=== PATIENT | male | born 1980 | race Caucasian/White ===

== ENCOUNTER 2020-01-05 08:55 | Emergency (ER) | payer OTHER, MEDICAID, SELFPAY ==
--- NOTE | 2020-01-05 09:17 | ED.ASTHMA ---
HPI - Asthma General Chief Complaint: Asthma Stated Complaint: SOB Time Seen by Provider: 01/05/20 09:17 Source: patient Mode of arrival: ambulatory Limitations: no limitations History of Present Illness MD complaint: other (needs inhaler) Onset (ago): day(s) Severity: mild Context: ran out of meds Associated symptoms: none Asthma History: childhood onset Related Data Allergies Allergy/AdvReac Type Severity Reaction Status Date / Time No Known Allergies Allergy Verified 01/05/20 08:59 [No Known Allergies*] Review of Systems Review of Systems: Constitutional : no fevers no chills ENT/Mouth : no sore throat, no runny nose Eyes: No Discharge Cardiovascular : No Chest Pain, No SOB Respiratory : No Cough, No Sputum Gastrointestinal : No Nausea, No Vomiting, No Diarrhea Genitourinary : No Dysuria, No Urinary Frequency Musculoskeletal : no Myalgia Skin : No rash Neuro : No Headache PMFSH Past Medical History Medical History Asthma Social History Social History Smoking Status: Current every day smoker Use of substances other than those prescribed or required for medical reasons: Yes Substance Use Type: Marijuana Substance Use Frequency: Daily Last Used Substance: Unknown Any prior treatment program specific to substance use: No Physical Exam Vital Signs and I&O and Narrative: Vital Signs and I&O: Vital Signs Temp 97.9 F 01/05/20 09:20 Pulse 88 01/05/20 09:20 Resp 16 01/05/20 09:20 BP 125/75 01/05/20 09:20 Pulse Ox 94 01/05/20 09:20 Intake & Output 01/04/20 01/05/20 01/05/20 18:59 06:59 18:59 Weight 87.3 kg Body Mass Index 26.1 Appearance: Alert. Oriented X3. No acute distress. Eyes: Pupils equal, round and reactive to light. ENT: Pharynx normal. Neck: Normal inspection. Neck supple. CVS: Normal heart rate and rhythm. Pulses normal. Respiratory: No respiratory distress. Breath sounds normal. Abdomen: Soft and nontender. Skin: Skin warm and dry. Normal skin color. Normal skin turgor. Extremities: No lower extremity edema. No lower extremity edema. Neuro: Oriented X 3. No motor deficit. No sensory deficit. MDM - Asthma MDM Narrative Medical decision making narrative: clear lungs no hypoxia here for inhaler only - no complaints, lost his, not toxic, clear lungs Discharge Plan Discharge Clinical Impression: Asthma Qualifiers: Asthma severity: mild Asthma persistence: unspecified Asthma complication type: with acute exacerbation Qualified Code(s): J45.901 - Unspecified asthma with (acute) exacerbation Patient Disposition: Home, Self-Care Instructions: Asthma (ED) Stand Alone Forms: Work/School Release
[2020-01-05 09:20] VITALS: BP 125/75; PULSE 88; RESP 16; TEMP 36.6; O2SAT 94; BMI 26.1
[2020-01-05 09:56] VITALS: BP 102/75; PULSE 69; RESP 14; TEMP 36.6; O2SAT 94
== END 2020-01-05 10:15 | disposition home or self-care (01) ==
LOC: HO.ED 09:44
PROVIDERS: Emergency Provider Emergency Medicine; PCP Internal Medicine
DX: J45.31 Mild persistent asthma with (acute) exacerbation (principal)
CPT/HCPCS: 99284

== ENCOUNTER → 2020-05-10 15:29 | Outpatient (BNVA) | payer OTHER, MEDICAID, SELFPAY | PROVIDERS: PCP Internal Medicine; Visit Provider Internal Medicine Pulmonary Disease ==

== ENCOUNTER → 2020-06-01 16:14 | Outpatient (BNVA) | payer OTHER, MEDICAID, SELFPAY | PROVIDERS: PCP Internal Medicine; Visit Provider Internal Medicine Pulmonary Disease ==

== ENCOUNTER 2022-11-23 06:11 | Inpatient (IN) | payer MEDICAID, SELFPAY ==
[2022-11-23] VITALS (12 sets, daily range): BP systolic 99–141; BP diastolic 54–81; PULSE 53–101; RESP 14–22; TEMP 36.3–37; O2SAT 73–100; BMI 20.9
--- NOTE | ~2022-11-23 | XR_ITS ---
EXAMINATION: XR chest 1V CLINICAL INFORMATION: Reason for Exam hypoxia COMPARISON: Prior study 04/16/2019 TECHNIQUE: XR chest 1V Tubes and lines: None Lungs and pleura: The entire Left lung field attenuation is mildly higher than the right, this can be seen in patients with mild uniform interstitial pneumonitis on the left, or decreased diffusion of the right lung due to PE or artifactual positional. No focal consolidation. Heart and mediastinum: The mediastinum is within normal limits.. Bones/soft tissue: Skeletal structures included are normal for patient's age. XR/XR chest 1V IMPRESSION: - Mild diffuse increased attenuation of the left lung field could be mild uniform interstitial pneumonitis, versus decreased diffusion of the right lung due to underlying hypoperfusion due to PE or artifactual positional. Please correlate with patient's symptoms, consider correlation with follow-up chest PA and lateral and if persisted consider CT scan. - No focal consolidation, no pleural effusion.
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
--- NOTE | 2022-11-23 06:55 | PC.NURSE ---
Administered nasal narcan to pt per WAREHOUSE [employer]OR present at bedside for depresed respiratory effort and low O2 saturation.
[2022-11-23 06:58] LABS: MANUAL DIFF FLAG NO
--- NOTE | 2022-11-23 06:58 | ECG_ITS ---
Test Reason : OVERDOSE Blood Pressure : / mmHG Vent. Rate : 089 BPM Atrial Rate : 089 BPM P-R Int : 150 ms QRS Dur : 092 ms QT Int : 404 ms P-R-T Axes : 075 060 070 degrees QTc Int : 491 ms Normal sinus rhythm Prolonged QT Abnormal ECG No previous ECGs available Referred By: Claudia Mayers Electronically Signed By:ADELITA HUNTER
[2022-11-23 07:02] LABS: Basophils Absolute Auto 0.1 X10*3/uL (0.0-0.2); Basophils Percent Auto 0.7 % (0-2); Eosinophils Absolute Auto 0.1 X10*3/uL (0.0-0.4); Eosinophils Percent Auto 0.7 % (0-4); Hematocrit 38.8 % (42.0-52.0); Hemoglobin 12.6 g/dl (14.0-18.0); Imm Gran Abs Auto 0.02 X10*3/uL (0.00-0.03); Imm Gran Pct Auto 0.3 % (0.0-0.4); Lymphocytes Absolute Auto 1.9 X10*3/uL (1.2-4.9); Lymphocytes Percent Auto 25.6 % (20-40); Mean Corpuscular HGB Conc 32.5 g/dl (31.0-36.0); Mean Corpuscular Hemoglobin 26.8 pg (27.0-33.0); Mean Corpuscular Volume 82.6 fL (80.0-98.0); Mean Platelet Volume 9.4 fL (9.4-12.4); Monocytes Absolute Auto 0.8 X10*3/uL (0.1-1.2); Monocytes Percent Auto 11.1 % (2-11); Neutrophils Absolute Auto 4.6 x10*3/uL (2.0-8.3); Neutrophils Percent Auto 61.6 % (45-73); Platelet Count 283 X10*3/uL (160-400); White Blood Count 7.4 X10*3/uL (4.8-10.8)
[2022-11-23 07:03] LABS: VBG Base Excess 5.2 mmol/L; VBG HCO3 26 mmol/L (22-26); VBG pCO2 30 mmHg; VBG pH 7.55 (7.32-7.43); VBG pO2 44 mmHg
[2022-11-23 07:13] LABS: Venous Blood Gas Refer to POC result
[2022-11-23] MEDS: 0.9 % Sodium Chloride 1,000 ML 999 ML IV (07:55)
[2022-11-23] MEDS: ondansetron HCL 4 MG/2 ML VIAL IVPUSH (07:56)
--- NOTE | 2022-11-23 08:00 | PC.NURSE ---
narcan administered by previous shift RN. pt arrived agitated, diaphoretic, incontinent of stool/urine; admits to using heroin/cocaine/crack + 4x24oz beers/day. pt states last drink around 0200 today. iv established; ivf infused. respirations even and unlabored; sats remain 98% on RA. skin wpd. pt reported to appear more drowsy; awake to tactile stimuli however vital signs remain stable.
--- NOTE | 2022-11-23 08:23 | PC.NURSE ---
held po med per PA as pt unable to intake po.
[2022-11-23] MEDS: Naloxone HCl Nasal 4 MG SPRAY NOSTRILALT (08:31)
[2022-11-23 09:08] LABS: Alanine Aminotransferase 16 U/L (0-40); Albumin Level 3.6 g/dL (3.5-5.0); Alkaline Phosphatase 80 U/L (39-117); Anion Gap 17 (12-20); Aspartate Amino Transferase 26 U/L (5-37); Bilirubin Direct 0.3 mg/dL (0.0-0.5); Bilirubin Total 0.5 mg/dL (0.0-1.0); Blood Urea Nitrogen 13 mg/dL (9-16); Calcium 9.3 mg/dL (8.4-10.2); Carbon Dioxide 20 mmol/L (22-29); Chloride 106 mmol/L (96-108); Creatinine Clr Calc Pharmacy 111.7; Estimated Glomerular Filt Rate > 60; Ethanol < 10 mg/dL; Glucose Random 87 mg/dL (60-115); Magnesium 1.9 mg/dL (1.6-2.6); Potassium 3.5 mmol/L (3.3-5.1); Sodium 139 mmol/L (135-145); Total Protein 7.5 g/dL (6.5-8.0)
--- NOTE | 2022-11-23 11:19 | PC.NURSE ---
pt alert to voice; vital signs remain stable; on RA sats 96%.
--- NOTE | 2022-11-23 12:08 | PC.NURSE ---
pt arousable to tactile stimulation, vss, reports increased nausea, COWS = 9, CIWA = 9, provider aware.
[2022-11-23] MEDS: PHENobarbitaL sodium 130 MG/ML IM ONCE 217.6 MG IM (13:03)
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
--- NOTE | 2022-11-23 13:43 | PHA.MEDREC ---
Pharmacy Consult ? Medication Reconciliation Pharmacy has completed the medication reconciliation.
--- NOTE | 2022-11-23 15:04 | PC.NURSE ---
pt remains drowsy, rousable to tactile stimulation, vss, PO meds held due to pt somnolence. CIWA - 0, pt pending bed assignment.
[2022-11-23] MEDS: Lactated Ringers 1,000 ML 100 ML IVCONT (15:25)
[2022-11-23] MEDS: Enoxaparin Sodium 40 MG/0.4 ML SYRINGE SUBCUT (16:00)
[2022-11-23] MEDS: PHENobarbitaL sodium 130 MG/ML VIAL IM Q3Hx2 163.2 MG IM ×2 (16:01→19:50)
--- NOTE | 2022-11-23 16:07 | MHC.RECOVRN ---
This assembly instructions writer met with patient after receiving addiction consult, pt admitted for ETOH, opiate withdrawal and Hypoxia. Pt was laying in bed on left side, barely audible, under blanket. Pt reports nausea, body aches, fatigue. COWS 4. Pt not visibly diphoretic, not visibly restless. Pt reports opiate use [employer]YNA[employer] TENDER 11/22/22. Pt states daily IV use heroin 1.5 bundles, crack/sandee $20 worth, pt reports ETOH use 24 oz beers and 5 shots daily . Pt reports prior to 2 weeks ago, had been on MTD maintenance. Pt states while on MTD continued to use opiates. Addiction/Recovery team to return at bedside when patient more stable and alert. Reviewed findings with Provider Wen Brannon.
--- NOTE | 2022-11-23 16:14 | PC.NURSE ---
pt medicated per MAR, CIWA 0, COWS 6, LR running at 100ml/hr. pt pending bed assignment.
[2022-11-23 16:17] LABS: Appearance Urine Clear; Color Urine Yellow; Glucose Urine UA Negative (Negative); Leukocyte Esterase Urine Negative (Negative); Nitrite Urine Negative (Negative); PH 5.5 (5.0-9.0); UMIC TRIGGER UACC YES; Urine Blood Moderate (2+) (Negative); Urine Ketones 80 mg/dL (Negative); Urine Protein Negative (Neg-Trace)
[2022-11-23 16:24] LABS: Bacteria Urine None Seen (None Seen); Hyaline Casts Urine 0-2 /LPF (0-2); Squamous Epithelial Cell Urine 0-2 /HPF (0-2); WBC Urine 0-5 /HPF (0-5)
[2022-11-23 16:30] LABS: Amphetamine Screen Urine Not Detected (Not Detect); Barbiturates, Urine POSITIVE (Not Detect); Benzodiazepines Screen Urine Not Detected (Not Detect); Cannabinoid Screen Urine POSITIVE (Not Detect); Cocaine Screen Urine POSITIVE (Not Detect); Fentanyl, urine POSITIVE (Not Detect); Opiate Screen Urine POSITIVE (Not Detect); Phencyclidine Screen Urine Not Detected (Not Detect)
--- NOTE | 2022-11-23 19:54 | PC.NURSE ---
pt medicated per MAR, CIWA 8.
[2022-11-23] MEDS: PHENobarbitaL 15 MG TABLET 45 MG PO (22:31)
--- NOTE | 2022-11-23 22:39 | PC.NURSE ---
pt medicated per MAR, resting quietly, vss.
[2022-11-24] VITALS (7 sets, daily range): BP systolic 124–142; BP diastolic 69–77; PULSE 51–75; RESP 14–26; TEMP 36.8–37.5; O2SAT 96–100
[2022-11-24] MEDS: Lactated Ringers 1,000 ML 100 ML IVCONT ×3 (00:34→21:52)
--- NOTE | 2022-11-24 07:27 | PC.NURSE ---
pt sleeping, wakes to verbal stimulus, altert/oriented to person/place- ivf running per order, vss, seizure precautions intact, pt refusing breakfast, call borges within reach, will continue to monitor.
[2022-11-24] MEDS: PHENobarbitaL 15 MG TABLET 45 MG PO ×2 (08:18→21:53)
[2022-11-24] MEDS: Thiamine HCL 100 MG TABLET PO (08:18)
[2022-11-24] MEDS: Multivitamin TABLET 1 TAB PO (08:18)
[2022-11-24] MEDS: Famotidine 20 MG TABLET PO ×2 (08:18→21:52)
[2022-11-24] MEDS: Folic Acid 1 MG TABLET PO (08:19)
--- NOTE | 2022-11-24 08:20 | PC.NURSE ---
pt medicated per order
--- NOTE | 2022-11-24 09:44 | PC.NURSE ---
pt currently sleeping/in no apparent distress - pain level not assessed during this time. vss. nsr on the monitor tech. pediatric O2 probe secured to finger with adhesive as pt had ripped old sensor off of finger. call borges placed within reach.
--- NOTE | 2022-11-24 11:07 | PC.NURSE ---
medications administered per provider order.
--- NOTE | 2022-11-24 11:45 | MHC.RECOVRN ---
This signwriter met with patient, patient admitted for opiate withdrawal, hypoxic. Pt resting comfortably, pt difficult to engage, barely audible. Pt reports n,bodyaches. COWS 2, no diaphoresis, no gooseflesh, no restlessness, no yawning, no runny nose. Pt as apart of d/c plan wishes to continue with former [facility] clinic[facility] [place]. Reviewed findings with Provider Wen Brannon. PRN MTD ordered for mild-moderate opiate withdrawal.
[2022-11-24] MEDS: methADONE HCl 20 MG/2 ML ORAL.CONC 10 MG PO (12:09)
--- NOTE | 2022-11-24 12:10 | PC.NURSE ---
pt medicated per May PRN methadone.
[2022-11-24] MEDS: Enoxaparin Sodium 40 MG/0.4 ML SYRINGE SUBCUT (15:09)
--- NOTE | 2022-11-24 15:11 | PC.NURSE ---
pt medicated per MAY, encouraged to sit up and eat lunch, pt acknowledge that he will try.
[2022-11-24 15:45] LABS: Hematocrit 38.5 % (42.0-52.0); Hemoglobin 12.8 g/dl (14.0-18.0); Mean Corpuscular HGB Conc 33.2 g/dl (31.0-36.0); Mean Corpuscular Hemoglobin 27.3 pg (27.0-33.0); Mean Corpuscular Volume 82.1 fL (80.0-98.0); Mean Platelet Volume 10.1 fL (9.4-12.4); Platelet Count 287 X10*3/uL (160-400); Red Blood Count 4.69 X10*6/uL (4.60-5.80); Red Cell Distribution Width 12.8 % (11.0-16.0); White Blood Count 7.8 X10*3/uL (4.8-10.8)
--- NOTE | 2022-11-24 18:08 | PC.NURSE ---
RN-RN report given to [facility] notified.
[2022-11-24] MEDS: 0.9 % Sodium Chloride Flush 3 ML SYRINGE IVFLUSH (21:55)
[2022-11-25] VITALS (9 sets, daily range): BP systolic 100–133; BP diastolic 54–76; PULSE 42–68; RESP 16–20; TEMP 36.1–37.2; O2SAT 95–100
--- NOTE | 2022-11-25 | ECG_ITS ---
Test Reason : tchy Blood Pressure : / mmHG Vent. Rate : 056 BPM Atrial Rate : 056 BPM P-R Int : 140 ms QRS Dur : 098 ms QT Int : 468 ms P-R-T Axes : 065 058 072 degrees QTc Int : 451 ms Sinus bradycardia Otherwise normal ECG When compared with ECG of 23-NOV-2022 07:49, Vent. rate has decreased BY 33 BPM Referred By: Alexander Hull Electronically Signed By:ADELITA HUNTER
[2022-11-25] MEDS: PHENobarbitaL sodium 130 MG/ML VIAL 65 MG IM (04:03)
[2022-11-25] MEDS: methADONE HCl 20 MG/2 ML ORAL.CONC 10 MG PO ×2 (07:14→10:14)
[2022-11-25] MEDS: methADONE HCl 20 MG/2 ML ORAL.CONC 30 MG PO (08:22)
[2022-11-25] MEDS: hydrOXYzine HCL 50 MG TABLET PO ×2 (08:23→18:22)
[2022-11-25] MEDS: Famotidine 20 MG TABLET PO ×2 (08:23→21:46)
[2022-11-25] MEDS: PHENobarbitaL 15 MG TABLET 45 MG PO (08:24)
[2022-11-25] MEDS: Lactated Ringers 1,000 ML 100 ML IVCONT (08:26)
--- NOTE | 2022-11-25 09:19 | MHC.CM.PN ---
CM attempted to speak with Patient at bedside but he was sleeping soundly; CM spoke with Patient's Mother/Justine @ [phone]. Patient lives in an apartment with his Mother and home self care vs Recovery Team intervention r/t ETOH & Opiate Withdrawal is the tentative plan. CM has initiated and will follow for dc planning. PCP is Dr. Juan José Snyder.
--- NOTE | 2022-11-25 09:43 | MHC.RECOVRN ---
Addendum entered by Lorna Zamudio RN 11/25/22 11:15: In to meet with pt, per pt's nurse ok to wake pt bc he has been waiting for recovery team. Pt reports transportation challenges, and that is why he was unable to dose with his home clinic for the past 2 weeks. Pt reports he was stable at 170 mg methadone. Pt interested and agreeable to a referral to [facility] to be able to dose at a location closer to him. Pt expressing desire to do detox/CSS. Pt provided with a folder of resources and harm reduction information. Harm reduction discussed with pt. Original Note: Pt noted to be resting quietly when this software writer attempted to make contact. Pt allowed to sleep, will re-attempt later today.
--- NOTE | 2022-11-25 15:22 | P.PNIM_ITS ---
Subjective Subjective Date of Service: 11/25/22 Interval History: Seen and evaluated this morning Still feeling weak and tired, no fever or chills Withdrawal symptoms of anxiety Asking for higher doses of Methadone to control symptoms Review of Systems Review of Systems: Yes all other systems are reviewed and are negative Physical Exam Vital Signs: Vital Signs: Last Vital Signs Temp 98.9 F 11/25/22 10:51 Pulse 45 L 11/25/22 10:51 Resp 20 11/25/22 10:51 BP 129/67 11/25/22 10:51 Pulse Ox 100 11/25/22 10:51 O2 Del Method Room Air 11/25/22 10:51 O2 Flow Rate 2 11/23/22 09:37 BMI result Body Mass Index 20.9 Const: Other: Constitutional : Awake with stimulation, interactive, not in distress Neck : Normal inspection, Supple, injection roy Cardiovascular : RRR, no JVP, no lower extremity edema Respiratory : good bilateral air entry, no crackles, wheezes or rhonchi Gastrointestinal: soft, lax, Normal bowel sounds, Non tender Skin : Warm, Dry, multiple tattoos and injection roy Neurological : Alert & oriented x3, No focal deficit Objective Data Active Medications Acetaminophen (Acetaminophen 325 Mg Tablet) 650 mg PO Q6H PRN PRN Reason: Pain, Mild (Pain Scale 1-3) Albuterol Sulfate (Albuterol Sulfate 90 Mcg 8 Gm Inhaler) 2 puff INHALE RQ4H PRN PRN Reason: Shortness of Breath/Wheezing Docusate Sodium (Docusate Sodium 100 Mg Capsule) 100 mg PO DAILY PRN PRN Reason: Constipation Enoxaparin Sodium (Enoxaparin Sodium 40 Mg/0.4 Ml Syringe) 40 mg SUBCUT Q24H [facility] Last Admin: 11/24/22 15:09 Dose: 40 mg Documented By: AIDAN Famotidine (Famotidine 20 Mg Tablet) 20 mg PO BID [facility] Last Admin: 11/25/22 08:23 Dose: 20 mg Documented By: CHARISMA Folic Acid (Folic Acid 1 Mg Tablet) 1 mg PO DAILY [facility] Stop: 11/27/22 08:59 Last Admin: 11/25/22 08:30 Dose: Not Given Documented By: CHARISMA Non-Admin Reason: Patient Refused Hydroxyzine HCl (Hydroxyzine Hcl 50 Mg Tablet) 50 mg PO Q6H PRN PRN Reason: anxiety/restlessness Last Admin: 11/25/22 08:23 Dose: 50 mg Documented By: CHARISMA Multivitamins/Vitamin C (Multivitamin Tablet) 1 tab PO DAILY [facility] Stop: 11/27/22 08:59 Last Admin: 11/25/22 08:30 Dose: Not Given Documented By: CHARISMA Non-Admin Reason: Patient Refused Pharmacy Consult (Consult Rx Etoh Phenob Im/Po) 1 each MISCELLANE ONCE PRN; Protocol PRN Reason: Consult order Phenobarbital (Phenobarbital 15 Mg Tablet) 15 mg PO BID [facility]; Protocol Stop: 11/27/22 09:01 Phenobarbital (Phenobarbital 15 Mg Tablet) 15 mg PO DAILY [facility]; Protocol Stop: 11/29/22 09:01 Sodium Chloride (0.9 % Sodium Chloride Flush 3 Ml Syringe) 3 ml IVFLUSH QSHIFT [facility] Last Admin: 11/25/22 08:30 Dose: Not Given Documented By: CHARISMA Non-Admin Reason: IV Running Thiamine HCl (Thiamine Hcl 100 Mg Tablet) 100 mg PO DAILY [facility] Stop: 11/26/22 14:44 Last Admin: 11/25/22 08:30 Dose: Not Given Documented By: CHARISMA Non-Admin Reason: Patient Refused Labs 11/24/22 15:34 11/23/22 08:46 Labs: Laboratory Results - last 24 hr 11/24/22 15:34 MCV 82.1 MCH 27.3 MCHC 33.2 RDW 12.8 Plt Count 287 MPV 10.1 Absolute Nucleated RBC 0.000 Nucleated RBC % (auto) 0.0 Assessment and Plan (1) Alcohol withdrawal syndrome: Status: Acute (2) Opiate withdrawal: Status: Acute Plan Pt is a 42-year-old male with a PMH significant for?moderate persistent asthma, hx of SHAMA infection, polysubstance use disorder previously on methadone alcohol use disorder, and homelessness who presents to the ED for alcohol and opioid withdrawal, seeking detox. Pt will be admitted to the hospital treatment further evaluation of acute alcohol and opioid withdrawal. Acute alcohol withdrawal CIWA PHenobarb protocol MVN, Folic and Thiamine Opioid withdrawal Famotidine IVF COWS scale Seizure protocols Increase Methadone dose Addiction medicine consult pneumonitis on CXR mild diffuse increased attenuation in the left lung field No cough or fever Patient currently satting at 100% on RA Will hold off on steroids\Abx Prolonged QTc EKG showed normal sinus rhythm with QTc 491 Moderate intermittent asthma Patient currently not on home meds Lungs CTA, no wheezing Albuterol inhaler p.r.n. Full Code DVT Prophylaxis: Lovenox Pt will require a hospitalization overnight for treatment of?acute alcohol and opioid withdrawal. Time Spent With Patient Time: Total time managing care of this patient today ____ minutes. Quality Stroke Does the patient have a stroke diagnosis?: No VTE Prior VTE?: No VTE Risk Level:: Medical - moderate - high VTE Device Contraindication: Treatment Not Indicated VTE Drug Contraindication: N/A - Med Ordered
[2022-11-25] MEDS: Enoxaparin Sodium 40 MG/0.4 ML SYRINGE SUBCUT (15:27)
--- NOTE | 2022-11-25 15:33 | HO.PM.IMPN ---
Subjective Subjective Date of Service: 11/24/22 Interval History: LATE ENTRY Seen and evaluated this morning weak and tired, barely waking up with stimulation no fever or chills Physical Exam Vital Signs: Vital Signs: Last Vital Signs Temp 97.7 F 11/25/22 15:22 Pulse 52 11/25/22 15:22 Resp 20 11/25/22 15:22 BP 120/70 11/25/22 15:22 Pulse Ox 98 11/25/22 15:22 O2 Del Method Room Air 11/25/22 15:22 O2 Flow Rate 2 11/23/22 09:37 BMI result Body Mass Index 20.9 Const: Other: Constitutional : sleepy, not in distress Neck : Normal inspection, Supple, injection roy Cardiovascular : RRR, no JVP, no lower extremity edema Respiratory : good bilateral air entry, no crackles, wheezes or rhonchi Gastrointestinal: soft, lax, Normal bowel sounds, Non tender Skin : Warm, Dry, multiple tattoos and injection roy Neurological : Alert with stimulation, oriented but very sleepy, No focal deficit Objective Data Active Medications Acetaminophen (Acetaminophen 325 Mg Tablet) 650 mg PO Q6H PRN PRN Reason: Pain, Mild (Pain Scale 1-3) Albuterol Sulfate (Albuterol Sulfate 90 Mcg 8 Gm Inhaler) 2 puff INHALE RQ4H PRN PRN Reason: Shortness of Breath/Wheezing Docusate Sodium (Docusate Sodium 100 Mg Capsule) 100 mg PO DAILY PRN PRN Reason: Constipation Enoxaparin Sodium (Enoxaparin Sodium 40 Mg/0.4 Ml Syringe) 40 mg SUBCUT Q24H [facility] Last Admin: 11/24/22 15:09 Dose: 40 mg Documented By: AIDAN Famotidine (Famotidine 20 Mg Tablet) 20 mg PO BID [facility] Last Admin: 11/25/22 08:23 Dose: 20 mg Documented By: CHARISMA Folic Acid (Folic Acid 1 Mg Tablet) 1 mg PO DAILY [facility] Stop: 11/27/22 08:59 Last Admin: 11/25/22 08:30 Dose: Not Given Documented By: CHARISMA Non-Admin Reason: Patient Refused Hydroxyzine HCl (Hydroxyzine Hcl 50 Mg Tablet) 50 mg PO Q6H PRN PRN Reason: anxiety/restlessness Last Admin: 11/25/22 08:23 Dose: 50 mg Documented By: CHARISMA Multivitamins/Vitamin C (Multivitamin Tablet) 1 tab PO DAILY [facility] Stop: 11/27/22 08:59 Last Admin: 11/25/22 08:30 Dose: Not Given Documented By: CHARISMA Non-Admin Reason: Patient Refused Pharmacy Consult (Consult Rx Etoh Phenob Im/Po) 1 each MISCELLANE ONCE PRN; Protocol PRN Reason: Consult order Phenobarbital (Phenobarbital 15 Mg Tablet) 15 mg PO BID [facility]; Protocol Stop: 11/27/22 09:01 Phenobarbital (Phenobarbital 15 Mg Tablet) 15 mg PO DAILY [facility]; Protocol Stop: 11/29/22 09:01 Sodium Chloride (0.9 % Sodium Chloride Flush 3 Ml Syringe) 3 ml IVFLUSH QSHIFT [facility] Last Admin: 11/25/22 08:30 Dose: Not Given Documented By: CHARISMA Non-Admin Reason: IV Running Thiamine HCl (Thiamine Hcl 100 Mg Tablet) 100 mg PO DAILY [facility] Stop: 11/26/22 14:44 Last Admin: 11/25/22 08:30 Dose: Not Given Documented By: CHARISMA Non-Admin Reason: Patient Refused Labs 11/24/22 15:34 11/23/22 08:46 Labs: Laboratory Results - last 24 hr 11/24/22 15:34 MCV 82.1 MCH 27.3 MCHC 33.2 RDW 12.8 Plt Count 287 MPV 10.1 Absolute Nucleated RBC 0.000 Nucleated RBC % (auto) 0.0 Assessment and Plan (1) Alcohol withdrawal syndrome: Status: Acute (2) Opiate withdrawal: Status: Acute Plan Pt is a 42-year-old male with a PMH significant for?moderate persistent asthma, hx of SHAMA infection, polysubstance use disorder previously on methadone alcohol use disorder, and homelessness who presents to the ED for alcohol and opioid withdrawal, seeking detox. Pt will be admitted to the hospital treatment further evaluation of acute alcohol and opioid withdrawal. Acute alcohol withdrawal CIWA PHenobarb protocol MVN, Folic and Thiamine Opioid withdrawal IVF COWS scale Seizure protocols Start Methadone Addiction medicine consult pneumonitis on CXR mild diffuse increased attenuation in the left lung field No cough or fever Patient currently satting at 100% on RA Will hold off on steroids\Abx Prolonged QTc EKG showed normal sinus rhythm with QTc 491 Moderate intermittent asthma Patient currently not on home meds Lungs CTA, no wheezing Albuterol inhaler p.r.n. Full Code DVT Prophylaxis: Lovenox Pt will require a hospitalization overnight for treatment of?acute alcohol and opioid withdrawal. Time Spent With Patient Time: Total time managing care of this patient today ____ minutes. Quality Stroke Does the patient have a stroke diagnosis?: No VTE Prior VTE?: No VTE Risk Level:: Medical - moderate - high VTE Device Contraindication: Treatment Not Indicated VTE Drug Contraindication: N/A - Med Ordered
[2022-11-25] MEDS: oxyCODONE HCl Immed Release 5 MG TABLET 10 MG PO (19:56)
[2022-11-25] MEDS: 0.9 % Sodium Chloride Flush 3 ML SYRINGE IVFLUSH (19:57)
[2022-11-25] MEDS: PHENobarbitaL 15 MG TABLET PO (21:47)
[2022-11-26 03:18] VITALS: BP 118/73; PULSE 72; RESP 20; TEMP 36.9; O2SAT 100
[2022-11-26] MEDS: hydrOXYzine HCL 50 MG TABLET PO (05:34)
[2022-11-26] MEDS: Acetaminophen 325 MG TABLET 650 MG PO (05:34)
[2022-11-26 07:34] VITALS: BP 122/59; PULSE 70; RESP 18; TEMP 37.2; O2SAT 100
[2022-11-26] MEDS: Thiamine HCL 100 MG TABLET PO (07:56)
[2022-11-26] MEDS: Multivitamin TABLET 1 TAB PO (07:56)
[2022-11-26] MEDS: Folic Acid 1 MG TABLET PO (07:56)
[2022-11-26] MEDS: Famotidine 20 MG TABLET PO (07:56)
[2022-11-26] MEDS: PHENobarbitaL 15 MG TABLET PO (07:57)
[2022-11-26] MEDS: methADONE HCl 20 MG/2 ML ORAL.CONC 70 MG PO (07:57)
[2022-11-26] MEDS: 0.9 % Sodium Chloride Flush 3 ML SYRINGE IVFLUSH (08:00)
--- NOTE | 2022-11-26 10:34 | MHC.RECOVRN ---
This securities underwriter met with patient, pt admitted to the hosptial for ETOH/Opiate withdrawal and hypoxia. Pt was resting in chair, easy to engage. Pt reports would like to leave, plans to follow up with [facility] as interested in recovery supports. This securities underwriter and patient reviewed risks with ETOH withdrawal, benefits of staying inpatient. Pt verbalized understanding, states would like to leave. Pt reports accesses [employer] for harm reduction supplies, pt reports knows how to use narcan, has reversed 4-5 overdoses in the community. Reviewed harm reduction, opiate overdose prevention, Xylazine in drug supply. Pt verbalized understanding. Reviewed levels of care for recovery, ATS, CSS. Pt verbalized understanding. Pt demonstrates good understanding of harm reduction as well as recovery supports in the community. Reviewed, Addiction/Recovery to send referral to [facility] to continue dosing, pt to present tomorrow at [facility]. Pt given Addiction/Recovery contact information and encouraged to call with any questions/concerns or present to the ED. Pt verbalized understanding. MTD referral sent to [facility]
--- NOTE | 2022-11-26 11:10 | P.DS_ITS ---
DS: Providers Provider Date of Service: 12/02/22 Date of admission: 11/23/22 14:37 Primary care physician: Juan José Snyder MD Consults: 11/23/22 13:56 Addiction Medicine Routine Consulting Provider: Addiction Covering Reason for consultation: Opioid and alcohol withdrawal DS: Diagnosis Discharge Diagnosis (1) Alcohol withdrawal syndrome: Status: Acute (2) Opiate withdrawal: Status: Acute (3) Pneumonitis: Status: Acute DS: Summary Hospital Course Hospital Course: The patient was admitted for opioid withdrawal and intention to detox. He was treated for both alcohol and opioid withdrawals with phenobarbital protocol, Methadone and other symptomatic measures. He continued to complain of not feeli ng well and asking for more narcotics. Methadone dose was increased and monitored with the help of the recovery team. He decided to leave against medical advice as he reports doesnt want to be on Methadone and looking to be admitted at a detox program. I explained the him the risk of leaving the hospital including worsening withdrawal symptoms, nausea, vomiting, pain and going back on street drugs and possibility of overdose again. He understands and insists on leaving. Time Spent with Patient Time attestation: Total time managing care of this patient today ____ minutes. Discharge coordination time: Greater than 30 minutes Quality: Safe Use of Opioids Does Pt have an Active Cancer Diagnosis on the Problem List?: No Quality: Stroke Does the patient have a stroke diagnosis?: No Physical Exam Vital Signs: Vital Signs: Last Vital Signs Temp 99.0 F 11/26/22 07:34 Pulse 70 11/26/22 07:34 Resp 18 11/26/22 07:34 BP 122/59 L 11/26/22 07:34 Pulse Ox 100 11/26/22 07:34 O2 Del Method Room Air 11/26/22 07:34 O2 Flow Rate 2 11/23/22 09:37 BMI result Body Mass Index 20.9 Const: Other: AMA DS: Data Imaging Chest x-ray: Radiologist's impression: ITS Impressions Chest X-Ray 11/23/22 07:30 IMPRESSION: - Mild diffuse increased attenuation of the left lung field could be mild uniform interstitial pneumonitis, versus decreased diffusion of the right lung due to underlying hypoperfusion due to PE or artifactual positional. Please correlate with patient's symptoms, consider correlation with follow-up chest PA and lateral and if persisted consider CT scan. - No focal consolidation, no pleural effusion. Discharge Plan Discharge Patient Disposition: Left Against Medical Advice Discharge Diagnosis: AMA Referrals: Juan José Snyder MD [Primary Care Provider] - 1 Week Discharge Medications: No Action No Known Home Meds Discharge Orders: Discharge Order (Routine); Ordered 12/02/22 Ordered By: Cole Chung Care Plan Goals: . Health Concerns: . Plan of Treatment: . Assessment: . Discharge Date/Time: 11/26/22 10:30
--- NOTE | 2022-11-26 11:56 | MHC.CM.PN ---
Patient has left AMA.
--- NOTE | 2022-12-02 21:40 | P.CDIM_ITS ---
PROVIDER RESPONSE TEXT: To clarify, the appropriate diagnosis supported by the clinical indicators: Pneumonitis: aspiration QUERY TEXT: PHYSICIAN'S DOCUMENTATION REQUEST Date of Query: 11/27/2022 07:50 AM EDT Patient Name: JANELLE CHISHOLM Admit Date: 11/23/2022 Dear Cole Chung, A review of the medical record indicates additional documentation may be needed. Please review below and update the documentation accordingly. Clinical Indicators: ED 11/23 - No focal pna, no role for Abx as this is a chemical reaction in the lungs and not a true in fection at this time. PN: Pneumonitis on Cxr, mild diffuse increased attenuation in the left lung field. Heavy alcohol, heroin, cocaine, short of breath and respiratory distress. Based on the above, could you clarify in the Progress Notes further specificity regarding the most li marc type of pneumonitis you suspect you are treating: Pneumonitis Please indicate if chemical, aspiration, drug induced, due to other source Other please specify Other (explain)Clinically unable to determine (explain)Thank you, Anabela Lund, CCS, CDIS Use of terms such as suspected, likely, concern for, or probable (associated with a specific diagnosi s that is being evaluated, monitored, or treated as if it exists) are acceptable and can be coded in the inpatient se tting, when documented at the time of discharge. Please use your independent medical judgment in providing your response. THIS QUERY IS PART OF THE PERMANENT MEDICAL RECORD
== END 2022-11-26 10:30 | disposition left against medical advice (07) | DRG 137 ==
LOC: HO.ED 07:58 → HO.EDOVER 14:47 → HO.IMC 11-24 17:40
PROVIDERS: Physician Assistant; Admitting Provider Student in an Organized Health Care Education/Training Program; Emergency Provider Student in an Organized Health Care Education/Training Program; PCP Internal Medicine; Visit Provider Student in an Organized Health Care Education/Training Program
DX: J69.0 Pneumonitis due to inhalation of food and vomit (principal); F10.139 Alcohol abuse with withdrawal, unspecified; R94.31 Abnormal electrocardiogram [ECG] [EKG]; F11.23 Opioid dependence with withdrawal; Z59.02 Unsheltered homelessness; J45.40 Moderate persistent asthma, uncomplicated
CPT/HCPCS: 36415; 71045; 80048; 80076; 80307; 81001; 82803; 83735; 85025; 85027; 93005; 99285; J1650; J2405; J2560

== ENCOUNTER → 2022-11-23 14:37 | Outpatient (BNV) | payer MEDICAID, SELFPAY | PROVIDERS: Admitting Provider Student in an Organized Health Care Education/Training Program; Emergency Provider Student in an Organized Health Care Education/Training Program; PCP Internal Medicine; Visit Provider Student in an Organized Health Care Education/Training Program | DX: F10.939 Alcohol use, unspecified with withdrawal, unspecified (principal); F11.93 Opioid use, unspecified with withdrawal; J18.9 Pneumonia, unspecified organism | CPT/HCPCS: 99223; 99232; 99239 ==

== ENCOUNTER 2023-01-18 06:03 | Emergency (ER) | payer SELFPAY ==
[2023-01-18 06:05] VITALS: BP 129/80; PULSE 99; RESP 18; TEMP 36.9; O2SAT 96; BMI 25.2
--- NOTE | 2023-01-18 07:32 | ED_ITS ---
HPI - General Adult General Chief complaint: General Medical Stated complaint: Med Refill Time Seen by Provider: 01/18/23 07:11 Source: patient Mode of arrival: ambulatory Limitations: no limitations History of Present Illness HPI narrative: Patient is on methadone Mrs. dose yesterday unable to get the medication today supposed to 90 mg of methadone denies any substance abuse currently while taking methadone no other complaints otherwise Related Data Home Medications Medication Instructions Recorded Confirmed No Known Home Meds 11/23/22 11/23/22 Allergies Allergy/AdvReac Type Severity Reaction Status Date / Time No Known Allergies Allergy Verified 01/18/23 06:07 [No Known Allergies*] Review of Systems Review of Systems: Yes all other systems are reviewed and are negative [facility] Past Medical History Medical History Asthma Social History Social History Housing: Homeless Alcohol intake: current Alcohol intake frequency: 3 or more drinks per day Alcohol type: beer Patient Tobacco Use Status: Tobacco use Unknown Years Smoked: 30 yrs Smoked in Last 30 Days: Yes Substance Use Type: Crack/Cocaine, Heroin, Marijuana, Methamphetamine and Opi ates Advance Directives: No Advance Directives Information Provided: Yes service: No Physical Exam ED Vital Signs: Vital Signs - 24 hr 01/18/23 06:05 Temperature 98.4 F Pulse Rate 99 Respiratory Rate 18 Blood Pressure 129/80 Pulse Oximetry 96 Oxygen Delivery Method Room Air BMI result Body Mass Index 25.2 Appearance: Alert. Oriented X3. No acute distress. Eyes: PERRLA, No Nystagmus ENT: Pharynx normal. Oral Mucosa moist Neck: Normal inspection. Neck supple. CVS: Normal heart rate and rhythm. Pulses normal. Respiratory: No respiratory distress. Abdomen: Soft and nontender. Skin: Skin warm and dry. Normal skin color. Normal skin turgor. Extremities: No lower extremity edema. No calf tenderness Neuro: Oriented X 3. Medical Decision Making Medical Decision Making [facility] Narrative: Patient for methadone, dosage was confirmed and 90 mg of methadone was given ,discharge patient home Discharge Plan Discharge Clinical Impression: Medication refill Patient Disposition: Home, Self-Care Instructions: Medicine Refill (ED) Additional Instructions: You are given 90 mg of methadone today follow-up with your detox clinic Prescriptions: No Action No Known Home Meds
--- NOTE | 2023-01-18 07:45 | PC.NURSE ---
Pt here reporting he needs his methadone dose since he left [place] from [facility] on 01/16. This data analyst report writer called and verified last dose, 01/16 he received 85mg, he is due to go up to 90mg. Verification faxed to MD marlon aware.
--- NOTE | 2023-01-18 08:21 | HE.PHANOTE ---
RE: methadone Last dose verification form from [facility]; 85mg daily due to increase to 90mg today. Last dose 01/16 85mg
[2023-01-18] MEDS: methADONE HCl 20 MG/2 ML ORAL.CONC 90 MG PO (08:43)
--- NOTE | 2023-01-18 08:47 | PC.NURSE ---
Pt given daily dose of methadone and d/c with patient knowing he needs to follow up with clinic for continued doses
== END 2023-01-18 08:49 | disposition home or self-care (01) ==
PROVIDERS: Emergency Provider Internal Medicine; PCP Internal Medicine
DX: F11.20 Opioid dependence, uncomplicated (principal); Z76.0 Encounter for issue of repeat prescription
CPT/HCPCS: 99283; 99284

== ENCOUNTER 2023-03-23 16:30 | Emergency (ER) | payer OTHER, SELFPAY ==
--- NOTE | ~2023-03-23 | XR_ITS ---
EXAMINATION: XR CHEST CLINICAL INFORMATION: Shortness of breath COMPARISON: 04/16/2019 TECHNIQUE: 2 views of the chest were obtained. FINDINGS: No significant abnormality is noted involving the heart, lungs, mediastinum, bony thorax or soft tissues. XR/XR chest 2V IMPRESSION: Unremarkable examination.
--- NOTE | 2023-03-23 17:02 | ED.URI ---
HPI - URI/Sore Throat General Chief Complaint: Upper Respiratory Symptoms Stated Complaint: cough Time Seen by Provider: 03/23/23 18:37 History of Present Illness HPI Narrative: Patient is a 42-year-old male who presents emergency department for evaluation of cough x 3 weeks, sore throat. Dneies fevers, chills, N/V/D. Reports hx of pneumonia, and this feeling similar. Patient has contacted detox facility, [facility] in [place], [place] states they are requesting an EKG for medical clearance as he is on Methadone 100mg dosed from [facility] in [place]. States he has been injecting and snorting heroin. Denies any injection site redness, pain, swelling. Denies CP, SOB, diff breathing. Related Data Home Medications Medication Instructions Recorded Confirmed methadone 10 mg/mL oral concentrate 85 mg PO DAILY 01/18/23 01/18/23 Previous Rx's Medication Instructions Recorded amoxicillin 500 mg tablet 1,000 mg (2 x 500 mg) PO DAILY 9 03/23/23 days #18 tabs Allergies Allergy/AdvReac Type Severity Reaction Status Date / Time No Known Allergies Allergy Verified 01/18/23 06:07 [No Known Allergies*] Review of Systems Review of Systems: Yes all other systems are reviewed and are negative PMFSH Past Medical History Attestation statement: The following information was validated with the patient. Source: old records reviewed Medical History Asthma Social History Social History Housing: Homeless Alcohol intake: current Alcohol intake frequency: 3 or more drinks per day Alcohol type: beer Patient Tobacco Use Status: Tobacco use Unknown Years Smoked: 30 yrs Substance Use Type: Crack/Cocaine, Heroin, Marijuana, Methamphetamine and Opiates Advance Directives: No Advance Directives Information Provided: No service: No Physical Exam Vital Signs: Vital Signs: Last Vital Signs Temp 98.4 F 03/23/23 17:03 Pulse 90 03/23/23 17:03 Resp 18 03/23/23 17:03 BP 113/64 03/23/23 17:03 Pulse Ox 96 03/23/23 17:03 O2 Del Method Room Air 03/23/23 17:03 BMI result Body Mass Index 22.9 Appearance: Alert.?Oriented to person, place and time. No acute distress.?Normal affect. Eyes: Pupils equal, round and reactive to light.? ENT: Pharynx erythematous with white exudate, uvula midline. 2+ tonsillar hypertrophy bilaterally. No trismus. No drooling. Neck: Normal inspection.? Neck supple.??No cervical lymphadenopathy. CVS: Heart sounds normal. Normal heart rate and rhythm.? Pulses normal.?? Respiratory: No respiratory distress.? Lung sounds clear to auscultation bilaterally?? Abdomen: Soft and non-tender. Normoactive bowel sounds. ?? Skin: Skin warm and dry.? Normal skin color.? ? Extremities: No lower extremity edema.? No calf ttp? Neuro: Moves all extremities spontaneously. Sensation intact bilaterally. No focal neuro deficits. Ambulates with normal steady gait. Medications Administered Discontinued Medications Generic Name Dose Route Start Last Admin Trade Name Freq PRN Reason Stop Dose Admin Amoxicillin 1,000 mg 03/23/23 18:30 03/23/23 18:35 Amoxicillin 500 Mg Capsule PO 03/23/23 18:31 1,000 mg ONCE ONE Administration Medical Decision Making Medical Decision Making [facility] Narrative: Patient is a 42-year-old male presents emergency department for evaluation of viral type symptoms including cough sore throat nausea vomiting diarrhea without abdominal pain his physical examination is most consistent with pharyngitis tonsillar hypertrophy and exudates, not consistent with peritonsillar retropharyngeal abscess. Strep a testing today is positive. He received initial dose of amoxicillin while in the emergency department in the remainder of his treatment was sent to pharmacy. Has been experiencing a productive cough, though he is not tachycardic, tachypneic, no hypoxia and is afebrile. CXR was obtained which reveals no evidence of pneumonia. Symptoms at this time not consistent with ACS/PE. He is requesting an EKG for medical clearance to a detox facility. When asked with a he would like to speak to our nurse intern here he declines this service, stating he only needs a letter proving that he had an EKG obtained without concerning findings. He denies any suicidal or homicidal ideations. He states he has been compliant with his methadone clinic as per HPI. At this time feel that he is stable for discharge. Differential Diagnosis Differential Diagnoses: The differential diagnosis associated with the presentation includes (As noted above) Admission/Observation Consideration of admission/observation: Escalation of care including admission/observation considered Lab Data MDM Lab Attestation statement: I reviewed the patient's lab results. (As noted above) Labs: Lab Results 03/23/23 Range/Units 17:09 COVID-19 ([facility]) Negative (Negative) COVID-19 Clin Com See Note Influenza Type A ([facility]) Negative (Negative) Influenza Type B ([facility]) Negative (Negative) Influenza A & B Note See Note S. pyogenes GrpA [facility] Positive A (Negative) Independent Interpretation I performed an independent interpretation of an: Plain X-Ray (I personally interpreted chest x-ray and agree with radiologist impression.) Radiology Impression Discussion of test interpretation with radiology: I have reviewed the radiologist's reading. Radiologist Impression: XR/XR chest 2V IMPRESSION: Unremarkable examination. External Record Review External record reviewed: Outpatient record Prescription Management I considered prescription management with: Antibiotic Social Determinants Patient?s care significantly limited by Social Determinants of Health including: Alcoholism and drug addiction in family Discharge Plan Discharge Clinical Impression: Acute streptococcal pharyngitis Patient Disposition: Home, Self-Care Instructions: Strep Throat (ED) Additional Instructions: Complete the entire course of antibiotics as prescribed, you received your 1st dose in the emergency department tonight, complete the remainder of treatment for the next 9 days. While you were here today you had an EKG obtained as requested for medical clearance; this indicates a normal sinus rhythm with QTC 465ms. Prescriptions: New amoxicillin 500 mg tablet 1,000 mg PO DAILY 9 Days Qty: 18 0RF No Action methadone 10 mg/mL Concentrate 85 mg PO DAILY Referrals: [facility] [Primary Care Provider] -
[2023-03-23 17:03] VITALS: BP 113/64; PULSE 90; RESP 18; TEMP 36.9; O2SAT 96; BMI 22.9
[2023-03-23 17:34] LABS: COVID-19 Test Negative (Negative); IDNOW Serial# 58CA691E; IDNOW Serial# 6674DD1D; Strep A Nucleic Acid Positive (Negative)
[2023-03-23 17:35] LABS: IDNOW Serial# 9DB6401D; Influenza A Negative (Negative); Influenza B2 Negative (Negative)
--- NOTE | 2023-03-23 18:33 | ECG_ITS ---
Test Reason : QTC INTERVAL Blood Pressure : / mmHG Vent. Rate : 080 BPM Atrial Rate : 080 BPM P-R Int : 154 ms QRS Dur : 094 ms QT Int : 404 ms P-R-T Axes : 058 027 058 degrees QTc Int : 465 ms Normal sinus rhythm Normal ECG When compared with ECG of 25-NOV-2022 01:29, No significant change was found Referred By: Jeana Aquino Electronically Signed By:TRAMAINE CHAPA MD
[2023-03-23] MEDS: Amoxicillin 500 MG CAPSULE 1000 MG PO (18:35)
== END 2023-03-23 19:21 | disposition home or self-care (01) ==
PROVIDERS: Nurse Practitioner Family; Emergency Provider Emergency Medicine
DX: J02.0 Streptococcal pharyngitis (principal); J45.909 Unspecified asthma, uncomplicated; F11.20 Opioid dependence, uncomplicated; Z11.52 Encounter for screening for COVID-19
CPT/HCPCS: 71046; 87502; 87635; 87651; 93005; 99282; 99283

== ENCOUNTER → 2023-03-23 18:33 | Outpatient (BNV) | payer OTHER, SELFPAY | PROVIDERS: Emergency Provider Emergency Medicine; Visit Provider Internal Medicine Cardiovascular Disease | DX: I45.81 Long QT syndrome (principal) | CPT/HCPCS: 93010 ==

== ENCOUNTER 2023-05-12 04:15 | Observation (INO) | payer OTHER, SELFPAY ==
[2023-05-12] VITALS (12 sets, daily range): BP systolic 120–138; BP diastolic 63–82; PULSE 87–107; RESP 14–20; TEMP 36.4–36.8; O2SAT 87–95; BMI 25.4
--- NOTE | ~2023-05-12 | XR_ITS ---
EXAMINATION: XR CHEST CLINICAL INFORMATION: Shortness of breath. COMPARISON: 03/23/2023. TECHNIQUE: Frontal view of the chest was obtained. FINDINGS: The cardiomediastinal silhouette is normal. There is no focal lung consolidation or pleural effusion. The bony structures and soft tissues are unremarkable. XR/XR chest 1V IMPRESSION: No acute cardiopulmonary process.
--- NOTE | 2023-05-12 04:27 | ED_ITS ---
HPI - SOB/Dyspnea General Chief Complaint: Dyspnea Stated Complaint: SoB Time Seen by Provider: 05/12/23 04:26 Source: patient Mode of arrival: ambulatory Limitations: no limitations History of Present Illness HPI Narrative: Patient with hx of history of asthma been sick for last 10 days received a course of steroid which she finished 2 days was in a program for detox been sick specially for last 2 days wheezing on arrival patient was saturating 87% at room air no chest pain or palpitation Related Data Home Medications Medication Instructions Recorded Confirmed methadone 10 mg/mL oral concentrate 85 mg PO DAILY 01/18/23 01/18/23 Previous Rx's Medication Instructions Recorded amoxicillin 500 mg tablet 1,000 mg (2 x 500 mg) PO DAILY 9 03/23/23 days #18 tabs Allergies Allergy/AdvReac Type Severity Reaction Status Date / Time No Known Allergies Allergy Verified 05/12/23 04:24 [No Known Allergies*] Review of Systems 2 Review of Systems: Yes all other systems are reviewed and are negative [facility] Past Medical History Medical History Asthma Social History Social History Housing: Homeless Alcohol intake: current Alcohol intake frequency: 3 or more drinks per day Alcohol type: beer Patient Tobacco Use Status: Tobacco use Unknown Years Smoked: 30 yrs Smoked in Last 30 Days: Yes Use of substances other than those prescribed or required for medical reasons: Yes Substance Use Type: Crack/Cocaine, Heroin and Marijuana Substance Use Frequency: Chronic Longstanding Advance Directives: No Advance Directives Information Provided: No service: No Physical Exam 2 Vital Signs: Vital Signs: Last Vital Signs Temp 98.0 F 05/12/23 04:20 Pulse 87 05/12/23 06:07 Resp 18 05/12/23 06:07 BP 138/78 05/12/23 06:00 Pulse Ox 94 05/12/23 06:00 O2 Del Method Nasal Cannula 05/12/23 06:00 O2 Flow Rate 3 05/12/23 06:00 BMI result Body Mass Index 25.4 Appearance: Alert. Oriented X3. Moderate respiratory distress distress. Eyes: PERRLA, No Nystagmus ENT: Pharynx normal. Oral Mucosa moist Neck: Normal inspection. Neck supple. CVS: Normal heart rate and rhythm. Pulses normal. Respiratory: No respiratory distress. Equal air entry bilateral, bilateral wheezing no crackles Abdomen: Soft and nontender. Bowel sounds are present, no mass palpable, no CVA tenderness Skin: Skin warm and dry. Normal skin color. Normal skin turgor. Extremities: No lower extremity edema. No calf tenderness Neuro: Oriented X 3. Medications Administered Discontinued Medications Generic Name Dose Route Start Last Admin Trade Name Freq PRN Reason Stop Dose Admin Albuterol Sulfate 5 mg 05/12/23 05:51 05/12/23 06:06 Albuterol Sulfate (0.083%) 2.5 Mg/3 Ml Vial.Neb INHALE 05/12/23 05:52 5 mg ONCE ONE Administration Albuterol Sulfate 5 mg/ 0 mg 05/12/23 04:26 05/12/23 04:37 Albuterol/Ipratropium 3 ml INHALE 05/12/23 04:27 2.5 each ONCE ONE Administration Magnesium Sulfate 2 gm in 50 mls @ 150 mls/hr 05/12/23 04:27 05/12/23 05:24 Magnesium Sulfate/H2o IV 05/12/23 04:46 Infused ONCE ONE Infusion Methylprednisolone Sodium Succinate 125 mg 05/12/23 04:27 05/12/23 04:43 Methylprednisolone Sod Succ 125 Mg/2 Ml Vial IVPUSH 05/12/23 04:28 125 mg ONCE ONE Administration Medical Decision Making Medical Decision Making [facility] Narrative: Patient with asthma saturating 87% on room air received 2 treatments and still saturating 89% at room air when he is asleep improves to 94-95% when he is awake will give continuous nebulizing treatment watch reassess and dispo accordingly Differential Diagnosis Differential Diagnoses: The differential diagnosis associated with the presentation includes Asthma/pneumonia/pneumothorax Admission/Observation Consideration of admission/observation: Escalation of care including admission/observation considered Lab Data [facility] Lab Attestation statement: I reviewed the patient's lab results. 05/12/23 04:39 05/12/23 04:39 Labs: Lab Results 05/12/23 Range/Units 04:39 WBC 7.8 (4.8-10.8) X10*3/uL RBC 5.23 (4.60-5.80) X10*6/uL Hgb 13.2 L (14.0-18.0) g/dl Hct 41.7 L (42.0-52.0) % MCV 79.7 L (80.0-98.0) fL MCH 25.2 L (27.0-33.0) pg MCHC 31.7 (31.0-36.0) g/dl RDW 15.2 (11.0-16.0) % Plt Count 234 (160-400) X10*3/uL MPV 9.8 (9.4-12.4) fL Immature Gran % (Auto) 0.4 (0.0-0.4) % Neut % (Auto) 50.5 (45-73) % Lymph % (Auto) 27.0 (20-40) % [place] % (Auto) 11.7 H (2-11) % Eos % (Auto) 9.9 H (0-4) % Baso % (Auto) 0.5 (0-2) % Lymph # (Auto) 2.1 (1.2-4.9) X10*3/uL [place] # (Auto) 0.9 (0.1-1.2) X10*3/uL Eos # (Auto) 0.8 H (0.0-0.4) X10*3/uL Baso # (Auto) 0.0 (0.0-0.2) X10*3/uL Abs Immat Gran (auto) 0.03 (0.00-0.03) X10*3/uL Absolute Neuts (auto) 3.9 (2.0-8.3) x10*3/uL Absolute Nucleated RBC 0.000 (0.0-0.012) X10*3/uL Nucleated RBC % (auto) 0.0 (0.0-0.2) /100WBC Sodium 140 (135-145) mmol/L Potassium 3.9 (3.3-5.1) mmol/L Chloride 102 (96-108) mmol/L Carbon Dioxide 27 (22-29) mmol/L Anion Gap 15 (12-20) BUN 8 L (9-16) mg/dL Creatinine 0.90 (0.5-1.4) mg/dL Estim Creat Clear Calc 112.7 Estimated GFR > 60 Random Glucose 76 (60-115) mg/dL Calcium 8.9 (8.4-10.2) mg/dL COVID-19 ([facility]) Negative (Negative) COVID-19 Clin Com See Note Independent Interpretation I performed an independent interpretation of an: Plain X-Ray Radiology Impression Discussion of test interpretation with radiology: I have reviewed the radiologist's reading. Discharge Plan Discharge Clinical Impression: Asthma, Hypoxia Patient Disposition: Still a Patient Prescriptions: No Action methadone 10 mg/mL Concentrate 85 mg PO DAILY amoxicillin 500 mg tablet 1,000 mg PO DAILY 9 Days Qty: 18 0RF
[2023-05-12] MEDS: Albuterol Sulfate 5 MG, Albuterol/Iprat 2.5/0.5MG 3 ML 3 ML INHALE (04:37)
[2023-05-12] MEDS: methylPREDNISolone Sod Succ 125 MG/2 ML VIAL IVPUSH (04:43)
[2023-05-12 04:44] LABS: Basophils Percent Auto 0.5 % (0-2); Eosinophils Absolute Auto 0.8 X10*3/uL (0.0-0.4); Eosinophils Percent Auto 9.9 % (0-4); Hematocrit 41.7 % (42.0-52.0); Hemoglobin 13.2 g/dl (14.0-18.0); Imm Gran Abs Auto 0.03 X10*3/uL (0.00-0.03); Imm Gran Pct Auto 0.4 % (0.0-0.4); Lymphocytes Absolute Auto 2.1 X10*3/uL (1.2-4.9); MANUAL DIFF FLAG NO; Mean Corpuscular HGB Conc 31.7 g/dl (31.0-36.0); Mean Corpuscular Hemoglobin 25.2 pg (27.0-33.0); Mean Corpuscular Volume 79.7 fL (80.0-98.0); Mean Platelet Volume 9.8 fL (9.4-12.4); Monocytes Absolute Auto 0.9 X10*3/uL (0.1-1.2); Monocytes Percent Auto 11.7 % (2-11); Neutrophils Absolute Auto 3.9 x10*3/uL (2.0-8.3); Neutrophils Percent Auto 50.5 % (45-73); Platelet Count 234 X10*3/uL (160-400); Red Blood Count 5.23 X10*6/uL (4.60-5.80); Red Cell Distribution Width 15.2 % (11.0-16.0); White Blood Count 7.8 X10*3/uL (4.8-10.8)
[2023-05-12] MEDS: Magnesium Sulfate/H2O 2 GM/50 ML PIGGYBACK IV (04:44)
[2023-05-12 04:56] LABS: COVID-19 Test Negative (Negative); IDNOW Serial# 152EDE1D
[2023-05-12 04:57] LABS: Anion Gap 15 (12-20); Blood Urea Nitrogen 8 mg/dL (9-16); Calcium 8.9 mg/dL (8.4-10.2); Carbon Dioxide 27 mmol/L (22-29); Chloride 102 mmol/L (96-108); Creatinine Clr Calc Pharmacy 112.7; Estimated Glomerular Filt Rate > 60; Glucose Random 76 mg/dL (60-115); Potassium 3.9 mmol/L (3.3-5.1); Sodium 140 mmol/L (135-145)
[2023-05-12] MEDS: Albuterol Sulfate (0.083%) 2.5 MG/3 ML VIAL.NEB 5 MG INHALE (06:06)
--- NOTE | 2023-05-12 09:32 | PC.NURSE ---
Alert and oriented, denies pain or discomfort. Ambulating to bathroom with steady gait, ate well for breakfast.
--- NOTE | 2023-05-12 09:46 | PHA.MEDREC ---
Pharmacy Consult ? Medication Reconciliation Pharmacy has completed the medication reconciliation. confirmed medications with patient.
[2023-05-12] MEDS: Albuterol/Iprat 2.5/0.5MG 3 ML AMPUL.NEB INHALE ×3 (11:03→20:00)
--- NOTE | 2023-05-12 16:37 | PC.NURSE ---
patient does not need tele monitoring per Dr Lawson
[2023-05-12] MEDS: 0.9 % Sodium Chloride Flush 3 ML SYRINGE IVFLUSH (17:07)
--- NOTE | 2023-05-12 18:35 | PM.IMHP ---
History of Present Illness Date of Service: 05/12/23 Attending physician on admission: Mariluz Lawson Chief Complaint: asthma excerebation 42 y/o m with pmhx of asthma ,drug use(says last time 1 week ago) : Patient came to the hospital because shortness of breath which is not improving, tried nebs ,steriods at home did not get response -sob worsening ,has clear sputum ,sob with minimum excersion,intially also sats were in 87%-received nebs ,steriods in ed -sats somewhat improving but since failed outpatient ssteriods and nebs treatment -need admission. Denies any new complaint of chest pain or abdominal pain or fever or chills or nausea or vomiting or weakness or numbness. denies any recent travel or sickk contact or antibiotics use . labs imaging reviewed: wbc: 7.8 h/h : 13.2/41.7 bmp: seems fine. XR/XR chest 1V:: No acute cardiopulmonary process. Review of Systems Review of Systems: Yes all other systems are reviewed and are negative [facility] Medical History Asthma Pertinent family history: no significant hx. Social History Housing: Homeless Alcohol intake: current Alcohol intake frequency: 3 or more drinks per day Alcohol type: beer Patient Tobacco Use Status: Current everyday Tobacco user Cigarettes Per Day: 7 Years Smoked: 30 yrs Smoked in Last 30 Days: Yes Patient Interested in Nicotine Replacement: Yes Patient Given Instructions on How to Stop Smoking: Yes Date Education Initiated: 05/12/23 Use of substances other than those prescribed or required for medical reasons: Yes Substance Use Type: Crack/Cocaine, Heroin and Marijuana Substance Use Frequency: Chronic Longstanding Advance Directives: No Advance Directives Information Provided: No service: No Meds Allergies Allergy/AdvReac Type Severity Reaction Status Date / Time No Known Allergies Allergy Verified 05/12/23 04:24 [No Known Allergies*] Active Medications: Current Medications Albuterol/Ipratropium (Albuterol/Iprat 2.5/0.5mg 3 Ml Ampul.Neb) 3 ml [facility]HALE [facility] Last Admin: 05/12/23 15:14 Dose: 3 ml Methylprednisolone Sodium Succinate (Methylprednisolone Sod Succ 40 Mg/Ml Vial) 40 mg IVPUSH BID TIMOTHY Sodium Chloride (0.9 % Sodium Chloride Flush 3 Ml Syringe) 3 ml IVFLUSH QSHIFT [facility] Last Admin: 05/12/23 17:07 Dose: 3 ml Home Medications Medication Instructions Recorded Confirmed Last Taken Type methadone 10 mg/mL oral concentrate 85 mg PO DAILY 01/18/23 01/18/23 01/16/23 History albuterol sulfate 2.5 mg/3 mL 3 mg inhalation DAILY PRN breathing 05/12/23 05/12/23 05/11/23 History (0.083 %) solution for nebulization albuterol sulfate 90 mcg/actuation 1 - 2 puff inhalation DAILY PRN 05/12/23 05/12/23 05/12/23 History aerosol inhaler (Ventolin HFA) breathing Physical Exam Vital Signs and Narrative: Vital Signs: Last Vital Signs Temp 97.5 F 05/12/23 17:32 Pulse 104 H 05/12/23 17:32 Resp 18 05/12/23 17:32 BP 125/82 05/12/23 17:32 Pulse Ox 92 05/12/23 17:32 O2 Del Method Room Air 05/12/23 17:32 O2 Flow Rate 3 05/12/23 06:00 BMI result Body Mass Index 25.4 Appearance: Alert.? Oriented X3.?sob with minimum excersion cvs: rrr, [id number] , no murmur res: air enrty dimished ,b/l wheezing abd: no rebound or guarding ,nt, bs present. ext pulses present , no cyanosis . neuro: axo3 , nonfocal. Results Labs 05/12/23 04:39 05/12/23 04:39 Labs: Laboratory Results - last 24 hr 05/12/23 04:39 MCV 79.7 L MCH 25.2 L MCHC 31.7 RDW 15.2 Plt Count 234 MPV 9.8 Immature Gran % (Auto) 0.4 Neut % (Auto) 50.5 Lymph % (Auto) 27.0 [place] % (Auto) 11.7 H Eos % (Auto) 9.9 H Baso % (Auto) 0.5 Lymph # (Auto) 2.1 [place] # (Auto) 0.9 Eos # (Auto) 0.8 H Baso # (Auto) 0.0 Abs Immat Gran (auto) 0.03 Absolute Neuts (auto) 3.9 Absolute Nucleated RBC 0.000 Nucleated RBC % (auto) 0.0 Anion Gap 15 Estim Creat Clear Calc 112.7 Estimated GFR > 60 Random Glucose 76 Calcium 8.9 COVID-19 ([facility]) Negative COVID-19 Clin Com See Note Imaging Radiologist's Impressions: Impressions Chest X-Ray 05/12/23 04:40 IMPRESSION: No acute cardiopulmonary process. Assessment and Plan (1) Asthma: Qualifiers: Asthma complication type: with acute exacerbation Asthma persistence: persistent Asthma severity: moderate Qualified Code(s): J45.41 - Moderate persistent asthma with (acute) exacerbation Status: Acute Plan 42 y/o m with pmhx of asthma came with sob-found to have acute hypoxemic respiratory failure sec to asthma excerebation(mild intermittent) asthma excerebation(mild intermittent) failed outpatient asthma treatment start nebs,steriods,oxygen if needed drug use: conrinue methadone once clearify by clinic urine drug screen dvt prophylax : s/c lovenox Patient will be admitted observation for asthma exacerbation-needs nebs, steroids, failed outpatient therapy. Benefit from respiratory monitoring for worsening asthma exacerbation. Above was discussed with the patient in detail length they understand and in agreement with the above plan, time spent 50 minute. Quality Stroke Does the patient have a stroke diagnosis?: No VTE Prior VTE?: No VTE Risk Level:: Medical - moderate - high VTE Device Contraindication: N/A - Device Ordered VTE Drug Contraindication: N/A - Med Ordered
[2023-05-12] MEDS: methylPREDNISolone Sod Succ 40 MG/ML VIAL IVPUSH (18:45)
[2023-05-12 19:08] LABS: Amphetamine Screen Urine Not Detected (Not Detect); Barbiturates, Urine Not Detected (Not Detect); Benzodiazepines Screen Urine Not Detected (Not Detect); Cannabinoid Screen Urine POSITIVE (Not Detect); Cocaine Screen Urine POSITIVE (Not Detect); Fentanyl, urine POSITIVE (Not Detect); Opiate Screen Urine POSITIVE (Not Detect); Phencyclidine Screen Urine Not Detected (Not Detect)
[2023-05-13] VITALS (7 sets, daily range): BP systolic 124–130; BP diastolic 58–62; PULSE 80–101; RESP 16–18; TEMP 36.4–36.9; O2SAT 92–93
[2023-05-13] MEDS: 0.9 % Sodium Chloride Flush 3 ML SYRINGE IVFLUSH ×2 (00:11→07:40)
[2023-05-13] MEDS: Albuterol/Iprat 2.5/0.5MG 3 ML AMPUL.NEB INHALE ×3 (00:20→11:51)
[2023-05-13] MEDS: methylPREDNISolone Sod Succ 40 MG/ML VIAL IVPUSH (07:40)
[2023-05-13] MEDS: methADONE HCl 20 MG/2 ML ORAL.CONC 100 MG PO (10:46)
--- NOTE | 2023-05-13 12:06 | MHC.CM.PN ---
pt lives with brauliocassandra he goes to [facility] in [place] for his methadone he will walk home
--- NOTE | 2023-05-13 12:53 | HO.PM.IMPN ---
Subjective Subjective Date of Service: 05/13/23 Interval History: f/u on asthma exa still sob and O2 Physical Exam Vital Signs: Vital Signs: Last Vital Signs Temp 98.5 F 05/13/23 11:22 Pulse 101 H 05/13/23 11:53 Resp 18 05/13/23 11:53 BP 126/58 L 05/13/23 11:22 Pulse Ox 93 05/13/23 11:22 O2 Del Method Room Air 05/13/23 10:30 O2 Flow Rate 2 05/13/23 07:21 BMI result Body Mass Index 25.4 Const: Other: General: AO X 3, no acute distress Resp: morris wheeze no accessory ms use CVS: S1,S2,RRR GI: +BS, NT, no distention Skin: No rash Neuro: motor grossly intact Psych: appropriate affect Objective Data Active Medications Albuterol/Ipratropium (Albuterol/Iprat 2.5/0.5mg 3 Ml Ampul.Neb) 3 ml INHALE RQ4H [facility] Last Admin: 05/13/23 11:51 Dose: 3 ml Documented By: GIULIANA Methadone HCl (Methadone Hcl 20 Mg/2 Ml Oral.Conc) 100 mg PO DAILY [facility] Last Admin: 05/13/23 10:46 Dose: 100 mg Documented By: TANIKA Methylprednisolone Sodium Succinate (Methylprednisolone Sod Succ 40 Mg/Ml Vial) 40 mg IVPUSH BID [facility] Last Admin: 05/13/23 07:40 Dose: 40 mg Documented By: TANIKA Sodium Chloride (0.9 % Sodium Chloride Flush 3 Ml Syringe) 3 ml IVFLUSH QSHIFT [facility] Last Admin: 05/13/23 07:40 Dose: 3 ml Documented By: TANIKA Labs 05/12/23 04:39 05/12/23 04:39 Labs: Laboratory Results - last 24 hr 05/12/23 18:44 Urine Opiates Screen POSITIVE H Urine Fentanyl Screen POSITIVE H Ur Barbiturates Screen Not Detected Ur Phencyclidine Scrn Not Detected Ur Amphetamines Screen Not Detected U Benzodiazepines Scrn Not Detected Urine Cocaine Screen POSITIVE H U Marijuana (THC) Screen POSITIVE H Assessment and Plan (1) Alcohol withdrawal syndrome: Status: Acute (2) Opiate withdrawal: Status: Acute Plan 42 y/o m with pmhx of asthma came with sob-found to have acute hypoxemic respiratory failure sec to asthma excerebation(mild intermittent) mild intermittent asthma excerebation failed outpatient asthma treatment continue Nebs, IV steroid for 1 more day wean off O2 Opioid use desorder--Methadone, add med consult dvt prophylax : s/c lovenox Quality Stroke Does the patient have a stroke diagnosis?: No VTE Prior VTE?: No VTE Risk Level:: Medical - moderate - high VTE Device Contraindication: N/A - Device Ordered VTE Drug Contraindication: N/A - Med Ordered
--- NOTE | 2023-05-13 13:21 | PM.DS ---
DS: Providers Provider Date of Service: 05/13/23 Date of admission: 05/12/23 09:25 Primary care physician: Juan José Snyder MD Consults: 05/13/23 08:10 Addiction Medicine Routine Consulting Provider: Addiction Covering Reason for consultation: Opioid depen Has provider been notified: Yes DS: Diagnosis Discharge Diagnosis (1) Alcohol withdrawal syndrome: Status: Acute (2) Opiate withdrawal: Status: Acute DS: Summary Hospital Course Hospital Course: Patient was admitted and treated for asthma exacerbation with IV steroid and bronchodilators by [facility]. He initially required oxygen but has sucessfully weaned off with O2 saturation around 94% on room air. He feels good and desire to go home with refil on his inhalers. Final diagnosis: acute exacrebation of mild persistent asthma Opiod use desorder Time Attestation Discharge coordination time: Greater than 30 minutes Quality: Safe Use of Opioids Does Pt have an Active Cancer Diagnosis on the Problem List?: No Quality: Stroke Does the patient have a stroke diagnosis?: No Physical Exam Vital Signs: Vital Signs: Last Vital Signs Temp 98.5 F 05/13/23 11:22 Pulse 101 H 05/13/23 11:53 Resp 18 05/13/23 11:53 BP 126/58 L 05/13/23 11:22 Pulse Ox 93 05/13/23 11:22 O2 Del Method Room Air 05/13/23 10:30 O2 Flow Rate 2 05/13/23 07:21 BMI result Body Mass Index 25.4 DS: Data Data Completed and Pending Completed studies during hospitalization [Text1]: Procedures Detoxification Services for Substance Abuse Treatment (11/23/22) Labs on day of discharge: Laboratory Results - last 24 hr 05/12/23 18:44 Urine Opiates Screen POSITIVE H Urine Fentanyl Screen POSITIVE H Ur Barbiturates Screen Not Detected Ur Phencyclidine Scrn Not Detected Ur Amphetamines Screen Not Detected U Benzodiazepines Scrn Not Detected Urine Cocaine Screen POSITIVE H U Marijuana (THC) Screen POSITIVE H Discharge Plan Discharge Anticipated Discharge Date/Time: 05/13/23 13:24 Patient Disposition: Home, Self-Care Discharge Diagnosis: Asthma exacerbation Referrals: Juan José Snyder MD [Primary Care Provider] - 1 Week Discharge Medications: Continued methadone 10 mg/mL Concentrate 85 mg PO DAILY albuterol sulfate 2.5 mg /3 mL (0.083 %) solution for nebulization 3 mg inhalation DAILY PRN (Reason: breathing) albuterol sulfate [Ventolin HFA] 90 mcg/actuation HFA aerosol inhaler 1 - 2 puff inhalation DAILY PRN (Reason: breathing) Qty: 1 0RF Discharge Orders: Discharge Order (Routine); Ordered 05/13/23 Ordered By: Sumit Love Diet: Advance to usual diet Activity on Discharge: As tolerated Stand Alone Forms: Patient Portal Discharge page Care Plan Goals: full recovery from asthma exacerbation Health Concerns: asthma opioid use desorder Plan of Treatment: use inhalers as directed and follow up with your Doctor in a week Avoid substance use Assessment: see above
--- NOTE | 2023-05-13 13:41 | MHC.CM.PN ---
pt home no servies
--- NOTE | 2023-05-14 08:13 | MHC.RECOVRN ---
Addiction Medicine consult received for opioid dependence. Chart reviewed, pt receiving 100 mg methadone through [facility]. Pt dc prior to being seen.
[2023-05-15 08:46] LABS: Alcohol, Ethyl Urine Screen NEGATIVE
== END 2023-05-13 14:23 | disposition home or self-care (01) ==
LOC: HO.ED 07:29 → HO.EDOVER 09:46 → HO.S3 15:21
PROVIDERS: Internal Medicine; Admitting Provider Internal Medicine; Emergency Provider Emergency Medicine; PCP Internal Medicine; Visit Provider Internal Medicine
DX: J45.41 Moderate persistent asthma with (acute) exacerbation (principal); F11.20 Opioid dependence, uncomplicated; R09.02 Hypoxemia; R06.02 Shortness of breath; Z79.899 Other long term (current) drug therapy; Z11.52 Encounter for screening for COVID-19
CPT/HCPCS: 71045; 80048; 80307; 85025; 87635; 94640; 96365; 96375; 96376; 99222; 99285; J2920; J2930; J3475

== ENCOUNTER → 2023-05-12 09:25 | Outpatient (BNV) | payer OTHER, SELFPAY | PROVIDERS: Admitting Provider Internal Medicine; Emergency Provider Emergency Medicine; PCP Internal Medicine; Visit Provider Internal Medicine | DX: J96.01 Acute respiratory failure with hypoxia (principal); J45.41 Moderate persistent asthma with (acute) exacerbation; F10.939 Alcohol use, unspecified with withdrawal, unspecified; F11.93 Opioid use, unspecified with withdrawal | CPT/HCPCS: 99223; 99238; 99499 ==